=== PATIENT | female | born 1990 | race Caucasian/White ===

== ENCOUNTER 2021-04-07 04:40 | Inpatient (IN) | payer OTHER ==
[2021-04-07 05:44] VITALS: BMI 33.1
[2021-04-07] MEDS: DEXTROSE 5%-LACTATED RINGERS 1,000 ML IV SCH (05:45)
[2021-04-07 05:55] LABS: BASO % 0.4 % (0-2.0); EOS % 0.4 % (0-4.5); HEMATOCRIT 29.1 % (32.4-45.2); HEMOGLOBIN 10.1 GM/dL (10.7-15.3); LYMPH % 26.9 % (8-40); MCH 29.8 pg (25.7-33.7); MCHC 34.6 g/dl (32.0-36.0); MEAN CELL VOLUME 86.3 fl (80-96); MEAN PLT VOLUME 10.5 fl (7.5-11.1); MONO % 5.9 % (3.8-10.2); NEUT % 66.4 % (42.8-82.8); PLATELET COUNT 187 10^3/uL (134-434); RBC 3.38 M/mm3 (3.60-5.2); RDW 13.3 % (11.6-15.6); WHITE BLOOD COUNT 6.2 K/mm3 (4.0-10.0)
[2021-04-07 06:02] LABS: INR 0.91 (0.83-1.09); PROTHROMBIN TIME (PATIENT) 11.2 SEC (9.7-13.0)
[2021-04-07 06:05] LABS: ACTIVATED PTT 27.3 SECONDS (25.2-36.5)
[2021-04-07 06:16] LABS: BLOOD UREA NITROGEN 10.7 mg/dL (7-18); CALCIUM 8.1 mg/dL (8.5-10.1)
[2021-04-07 06:19] LABS: CREATININE 0.5 mg/dL (0.55-1.3)
[2021-04-07 07:14] LABS: HIV INTERPRETATION NEGATIVE (NEGATIVE)
[2021-04-07] MEDS ORDERED: FENTANYL/BUPIVACAINE/NS/PF - PCEA - 50 ML DISP.SYRIN EP ONE ×2 (08:19→12:36)
[2021-04-07] MEDS ORDERED: BUPIVACAINE HCL/PF 0.25% (2.5MG/ML) 10 ML VIAL ONE (08:22)
[2021-04-07] MEDS ORDERED: PCA PUMP NR ONE (08:23)
[2021-04-07] MEDS: FENTANYL/BUPIVACAINE/NS/PF - PCEA - 50 ML DISP.SYRIN EP SCH ×2 (08:50→12:41)
[2021-04-07] MEDS ORDERED: NALOXONE HCL 0.4 MG/ML VIAL IVPUSH PRN (08:53)
[2021-04-07] MEDS: LACTATED RINGERS SOLUTION 1,000 ML IV SCH (10:00)
[2021-04-07] MEDS ORDERED: OXYTOCIN 30 UNITS in 0.9% NS 30 UNIT/500 ML INFUS.BAG IVPB SCH (10:45)
[2021-04-07] MEDS ORDERED: OXYTOCIN 20 UNITS in 0.9% NS 20 UNIT/1,000 ML INFUS.BAG IV ONE ×2 (13:36→14:28)
[2021-04-07] MEDS ORDERED: LIDOCAINE HCL/EPINEPHRINE/PF 10 ML VIAL ONE (14:28)
[2021-04-07] MEDS ORDERED: AZITHROMYCIN IVPB 500 MG/250 ML BAG IVPB ONE (14:48)
[2021-04-07] MEDS ORDERED: ONDANSETRON 4 MG/2 ML VIAL IVPUSH PRN (15:00)
[2021-04-07] MEDS ORDERED: ACETAMINOPHEN 325 MG TABLET (FP) PO PRN (15:00)
[2021-04-07] MEDS ORDERED: PHENYLEPHRINE HCL 10 MG/1 ML SINGLE DOSE VIAL ONE (15:11)
[2021-04-07] MEDS ORDERED: KETOROLAC TROMETHAMINE 30 MG/1 ML VIAL ONE (15:21)
[2021-04-07] MEDS ORDERED: OXYTOCIN 20 UNITS in 0.9% NS 20 UNIT/1,000 ML INFUS.BAG IV SCH (15:30)
[2021-04-07] MEDS ORDERED: BENZOCAINE 20% 57 GM BOTTLE TP PRN (15:30)
[2021-04-07] MEDS ORDERED: IBUPROFEN 800 MG/8 ML IJ IVPB PRN (15:30)
[2021-04-07] MEDS ORDERED: oxyCODONE HCL 5 MG TABLET PO PRN ×2 (15:30)
[2021-04-07] MEDS ORDERED: WITCH HAZEL 50% (TUCKS) 40 PAD/JAR PAD TP PRN (15:30)
[2021-04-07] MEDS ORDERED: METHYLERGONOVINE MALEATE 0.2 MG/1 ML AMP IM PRN (15:30)
[2021-04-07] MEDS ORDERED: diphenhydrAMINE HCL 25 MG CAPSULE (FP) PO PRN (15:30)
[2021-04-07] MEDS ORDERED: BENZOCAINE 28 GM HEMORRHOIDAL OINTMENT PR PRN (15:30)
[2021-04-07 15:49] LABS: CORD BASE EXCESS -5.3 mmol/L (0-2); CORD HCO3 21.6 mmHg (20-29); CORD PCO2 46.9 mmHg (30-78); CORD pH 7.282 (7.14-7.44)
[2021-04-07 15:52] LABS: CORD BASE EXCESS -5.3 mmol/L (0-2); CORD HCO3 23.7 mmHg (20-29); CORD PCO2 59.9 mmHg (30-78); CORD pH 7.216 (7.14-7.44)
[2021-04-07] MEDS ORDERED: AMPICILLIN SODIUM 1 GM VIAL ONE ×2 (16:04→19:46)
[2021-04-07] MEDS: AMPICILLIN - 1 GM in SODIUM CHLORIDE 100 ML IVPB SCH ×2 (16:11→20:33)
[2021-04-07] MEDS ORDERED: CEFAZOLIN 1 GM/D5W 1 GM/50 ML BAG IVPB SCH (18:00)
[2021-04-07] MEDS: GENTAMICIN 80 MG PREMIXED IVPB 80 MG/100 ML BAG IVPB SCH (18:03)
[2021-04-07] MEDS ORDERED: SODIUM CHLORIDE 100 ML IVPB ONE (19:45)
[2021-04-07] MEDS: CLINDAMYCIN 900 MG PREMIX IVPB 900 MG/50 ML BAG IVPB SCH (19:54)
[2021-04-07] MEDS ORDERED: DEXTROSE 5%-LACTATED RINGERS 1,000 ML IV SCH (23:30)
[2021-04-08] MEDS ORDERED: AMPICILLIN SODIUM 1 GM VIAL ONE ×3 (00:30→08:01)
[2021-04-08] MEDS ORDERED: SODIUM CHLORIDE 100 ML IVPB ONE ×3 (00:30→08:01)
[2021-04-08] MEDS: AMPICILLIN - 1 GM in SODIUM CHLORIDE 100 ML IVPB SCH ×4 (00:44→22:10)
[2021-04-08] MEDS: CLINDAMYCIN 900 MG PREMIX IVPB 900 MG/50 ML BAG IVPB SCH ×2 (01:56→10:38)
[2021-04-08] MEDS: GENTAMICIN 80 MG PREMIXED IVPB 80 MG/100 ML BAG IVPB SCH ×2 (02:20→22:10)
[2021-04-08] MEDS: IBUPROFEN 600 MG TABLET (FP) PO PRN ×2 (06:38→22:34)
[2021-04-08] MEDS: SIMETHICONE 80 MG TAB.CHEW (FP) PO PRN ×3 (06:38→22:33)
[2021-04-08] MEDS ORDERED: LACTATED RINGERS SOLUTION 1000 ML INFUS.BAG IV SCH (10:00)
[2021-04-08 10:45] LABS: BASO % 0.2 % (0-2.0); EOS % 0.1 % (0-4.5); HEMATOCRIT 20.5 % (32.4-45.2); LYMPH % 9.3 % (8-40); MCH 28.8 pg (25.7-33.7); MCHC 33.4 g/dl (32.0-36.0); MEAN CELL VOLUME 86.2 fl (80-96); MEAN PLT VOLUME 10.1 fl (7.5-11.1); MONO % 3.9 % (3.8-10.2); NEUT % 86.5 % (42.8-82.8); PLATELET COUNT 142 10^3/uL (134-434); RBC 2.38 M/mm3 (3.60-5.2); RDW 13.8 % (11.6-15.6); WHITE BLOOD COUNT 12.4 K/mm3 (4.0-10.0)
[2021-04-08 10:55] LABS: HEMOGLOBIN 6.9 GM/dL (10.7-15.3)
[2021-04-08] MEDS ORDERED: BISACODYL 10 MG SUPP.RECT PR PRN (15:30)
[2021-04-08] MEDS: FENTANYL/BUPIVACAINE/NS/PF - PCEA - 50 ML DISP.SYRIN EP SCH (22:10)
[2021-04-09] MEDS: DEXTROSE 5%-LACTATED RINGERS 1,000 ML IV SCH (07:28)
[2021-04-09] MEDS: IBUPROFEN 600 MG TABLET (FP) PO PRN (07:58)
[2021-04-09] MEDS: SIMETHICONE 80 MG TAB.CHEW (FP) PO PRN (07:58)
[2021-04-09 08:24] LABS: BASO % 0.1 % (0-2.0); EOS % 0.7 % (0-4.5); HEMATOCRIT 25.7 % (32.4-45.2); HEMOGLOBIN 8.9 GM/dL (10.7-15.3); LYMPH % 13.3 % (8-40); MCH 29.2 pg (25.7-33.7); MCHC 34.8 g/dl (32.0-36.0); MEAN PLT VOLUME 9.7 fl (7.5-11.1); MONO % 4.7 % (3.8-10.2); NEUT % 81.2 % (42.8-82.8); PLATELET COUNT 167 10^3/uL (134-434); RBC 3.05 M/mm3 (3.60-5.2); WHITE BLOOD COUNT 14.8 K/mm3 (4.0-10.0)
[2021-04-09 10:54] VITALS: BP 114/70; PULSE 83; TEMP 98.3
[2021-04-09] MEDS: LACTATED RINGERS SOLUTION 1,000 ML IV SCH (13:36)
[2021-04-09] MEDS ORDERED: SENNOSIDES/DOCUSATE COMBO (SENNA PLUS) TABLET (UD) PO PRN (22:00)
== END 2021-04-09 16:11 | disposition home or self-care (01) | DRG 540 ==
LOC: JDEL 04:40 → JLDR 05:10 → J3W 17:30
PROVIDERS: ADMIT Internal Medicine; ATTEND Internal Medicine
PROC: 10D00Z1 Extraction of Products of Conception, Low, Open Approach (ICD-10-PCS; principal; 2021-04-07)
PROC: 0UL70ZZ Occlusion of Bilateral Fallopian Tubes, Open Approach (ICD-10-PCS; 2021-04-07)
PROC: 10907ZC Drainage of Amniotic Fluid, Therapeutic from Products of Conception, Via Natural or Artificial Opening (ICD-10-PCS; 2021-04-07)
PROC: 30233N1 Transfusion of Nonautologous Red Blood Cells into Peripheral Vein, Percutaneous Approach (ICD-10-PCS; 2021-04-08)
DX: O34.219 Maternal care for unspecified type scar from previous cesarean delivery (principal); O76 Abnormality in fetal heart rate and rhythm complicating labor and delivery; O41.1230 Chorioamnionitis, third trimester, not applicable or unspecified; N71.9 Inflammatory disease of uterus, unspecified; O90.81 Anemia of the puerperium; D62 Acute posthemorrhagic anemia; O36.63X0 Maternal care for excessive fetal growth, third trimester, not applicable or unspecified; O77.0 Labor and delivery complicated by meconium in amniotic fluid; Z30.2 Encounter for sterilization; Z3A.40 40 weeks gestation of pregnancy; Z37.0 Single live birth
CPT/HCPCS: 36415; 36430; 36600; 80048; 82803; 82962; 85025; 85610; 85730; 86780; 86850; 86900; 86901; 86922; 87340; 87389; C9803; P9058; U0003; U0005